=== PATIENT | female | born 1990 | race Caucasian/White ===

== ENCOUNTER 2018-06-02 12:16 | Emergency (ER) | payer OTHER ==
--- NOTE | 2018-06-02 14:10 | EDPHY ---
H & P Stated Complaint: mid sternal cp back pain reproduceable worse with movement/ deep breath Time Seen by Provider: 06/02/18 13:46 HPI/ROS: CHIEF COMPLAINT: Chest pain HISTORY OF PRESENT ILLNESS: 28-year-old female presents with chest pain. Onset of chest pain 4 days ago. The pain is constant and increases with deep inspiration and bilateral arm movement. The pain radiates to the back. No alleviating factors. Has not taken pain medication because she has so many allergies and has celiac disease. History of prior similar symptoms, attributed to musculoskeletal etiology. She has a history of a postoperative DVT in 2014. No shortness of breath and no leg swelling. REVIEW OF SYSTEMS: complete 10 point ROS reviewed and is negative except for the noted elements in the HPI - Personal History Current Tetanus Diphtheria and Acellular Pertussis (TDAP): Unsure Tetanus Vaccine Date: within last 10 years - Medical/Surgical History Hx Asthma: No Hx Chronic Respiratory Disease: No Hx Diabetes: No Hx Cardiac Disease: No Hx Renal Disease: No Hx Cirrhosis: No Hx Alcoholism: No Hx HIV/AIDS: No Hx Splenectomy or Spleen Trauma: No Other PMH: bilateral lower extremity surgery 11/09 - Social History Smoking Status: Never smoked Alcohol Use: None Drug Use: None - Physical Exam Exam: General Appearance: Alert, pleasant Eyes: Pupils equal and round, no conjunctival pallor or injection ENT, Mouth: Mucous membranes moist Neck: Normal inspection Respiratory: Normal inspection, tenderness over the sternum and especially over the left costochondral area, Lungs are clear to auscultation Cardiovascular: Regular rate and rhythm Gastrointestinal: Abdomen is soft and nontender Neurological: A&O, nonfocal exam Skin: Warm and dry, no rash Extremities: Nontender, no pedal edema Psychiatric: Mood and affect normal Constitutional: Initial Vital Signs Temperature (C) 36.4 C 06/02/18 12:22 Heart Rate 84 06/02/18 12:22 Respiratory Rate 18 06/02/18 12:22 Blood Pressure 123/83 H 06/02/18 12:22 O2 Sat (%) 99 06/02/18 12:22 O2 Delivery Mode Room Air Allergies/Adverse Reactions: albuterol [Albuterol] Allergy (Unknown, Verified 06/02/18 12:21) Sulfa (Sulfonamide Antibiotics) Allergy (Unknown, Verified 06/02/18 12:21) acetaminophen [From Vicodin] Allergy (Verified 06/02/18 12:21) Vomiting enoxaparin [From Lovenox] Allergy (Verified 06/02/18 12:21) hydrocodone bitartrate [From Vicodin] Allergy (Verified 06/02/18 12:21) Vomiting ipratropium bromide [From Atrovent] Allergy (Verified 06/02/18 12:21) latex Allergy (Verified 06/02/18 12:21) levofloxacin Allergy (Verified 06/02/18 12:21) anxiety, visual disturbances, memory loss morphine Allergy (Verified 06/02/18 12:21) Anxiety oxycodone HCl [From Percocet] Allergy (Verified 06/02/18 12:21) Vomiting Shellfish *RETIRED-02/29/12 [Shellfish] Allergy (Verified 06/02/18 12:21) tetracycline [Tetracycline] Allergy (Verified 06/02/18 12:21) Home Medications: Medication Instructions Recorded NK [No Known Home Meds] 06/02/18 Medical Decision Making - Diagnostics EKG Interpretation: EKG interpreted by me reveals normal sinus rhythm, rate 71, no ST or T segment changes. Interpretation: Normal EKG Imaging Results: Imaging Impressions Chest X-Ray 06/02/18 13:52 Impression: No significant radiographic abnormality. Specifically, a source for chest pain is not identified. ED Course/Re-evaluation: This patient presents with prolonged atypical chest pain, with history of similar discomfort. Stat EKG reveals no evidence ischemia, dysrhythmia or pericarditis. The patient has a history of postoperative DVT, so D-dimer was ordered. D-dimer is normal. I feel that I can safely exclude acute pulmonary embolism as diagnosis. In addition there is no evidence of acute coronary syndrome in this young patient with prolonged pain. Most likely musculoskeletal etiology of pain. Follow-up instructions given. Differential Diagnosis: Differential diagnosis includes though it is not limited to pneumonia, pneumothorax, pulmonary embolism, aortic dissection, pericarditis, acute coronary syndrome. - Data Points Laboratory Results: Laboratory Results 06/02/18 13:58 06/02/18 06/02/18 06/02/18 13:58 13:58 13:58 WBC 6.25 10^3/uL 10^3/uL (3.80-9.50) RBC 5.53 10^6/uL H 10^6/uL (4.18-5.33) Hgb 15.9 g/dL g/dL (12.6-16.3) Hct 47.3 % H % (38.0-47.0) MCV 85.5 fL fL (81.5-99.8) MCH 28.8 pg pg (27.9-34.1) MCHC 33.6 g/dL g/dL (32.4-36.7) RDW 12.7 % % (11.5-15.2) Plt Count 226 10^3/uL 10^3/uL (150-400) MPV 11.4 fL fL (8.7-11.7) Neut % (Auto) 73.9 % % (39.3-74.2) Lymph % (Auto) 18.2 % % (15.0-45.0) Gates % (Auto) 5.8 % % (4.5-13.0) Eos % (Auto) 1.0 % % (0.6-7.6) Baso % (Auto) 0.8 % % (0.3-1.7) Nucleat RBC Rel Count 0.0 % % (0.0-0.2) Absolute Neuts (auto) 4.62 10^3/uL 10^3/uL (1.70-6.50) Absolute Lymphs (auto) 1.14 10^3/uL 10^3/uL (1.00-3.00) Absolute Monos (auto) 0.36 10^3/uL 10^3/uL (0.30-0.80) Absolute Eos (auto) 0.06 10^3/uL 10^3/uL (0.03-0.40) Absolute Basos (auto) 0.05 10^3/uL 10^3/uL (0.02-0.10) Absolute Nucleated RBC 0.00 10^3/uL 10^3/uL (0-0.01) Immature Gran % 0.3 % % (0.0-1.1) Immature Gran # 0.02 10^3/uL 10^3/uL (0.00-0.10) D-Dimer < 0.27 ug/mLFEU ug/mLFEU (0.00-0.50) Sodium Pending Potassium Pending Chloride Pending Carbon Dioxide Pending Anion Gap Pending BUN Pending Creatinine Pending Estimated GFR Pending Glucose Pending Calcium Pending Departure - Departure Disposition: Home, Routine, Self-Care Clinical Impression: Chest pain Qualifiers: Chest pain type: precordial pain Qualified Code(s): R07.2 - Precordial pain Condition: Good Instructions: Chest Pain (ED) Additional Instructions: Ibuprofen 600 mg 3 times daily while the pain persists. Referrals: Chiqui Serna MD [Medical Doctor] - As per Instructions (Call to make an appointment.) Stand Alone Forms: Statement of Treatment
[2018-06-02 14:41] LABS: PLATELET COUNT 226 10^3/uL (150-400)
[2018-06-02] MEDS ORDERED: NS 1,000 ML IV ONE (15:22)
[2018-06-02 15:50] VITALS: BP 116/72
--- NOTE | 2018-06-02 16:08 | CPEKG ---
Test Reason : OPEN Blood Pressure : / mmHG Vent. Rate : 071 BPM Atrial Rate : 071 BPM P-R Int : 151 ms QRS Dur : 080 ms QT Int : 387 ms P-R-T Axes : 079 082 066 degrees QTc Int : 421 ms Sinus rhythm Confirmed by Aldo Minor ([id number]) on 06/02/2018 4:07:49 PM Referred By: Confirmed By:Aldo Minor
== END 2018-06-02 16:13 | disposition home or self-care (01) ==
DX: R07.2 Precordial pain (principal); E86.9 Volume depletion, unspecified